=== PATIENT | male | born 1945 | race Caucasian/White ===

== ENCOUNTER → 2017-03-29 | Outpatient (CLI) | payer OTHER ==
[~2017-03-29] MED LIST: ALTACE; ALTACE2.5 MG PO; ASPIR 8181 M1 PO; ASPIRIN81 M2 PO; CIPRO500 MG PO; FISH OIL CONC1 EACH PO; FISH OIL300 MG PO; FLOMAX0.4 MG PO; FLONASE16 G1 BOTH NARES; GLIPIZIDE10 MG PO; GLUCOTROL10 MG PO; IMDUR30 MG PO; LIPITOR40 MG PO; LOPRESSOR25 MG PO; METFORMIN HCL1000 MG PO; METOPROLOL PO; METOPROLOL TART25 MG PO; METOPROLOL TART50 MG PO; NITROSTAT0.4 MG SL; NORCO 5/3251 TABLET PO; OMEPRAZOLE40 M1 PO; PERCOCET 5/31 TABLET PO; RANITIDINE HCL150 MG PO; TAMSULOSIN HCL0.4 MG PO; TRICOR; TRICOR145 MG PO; TUMS500 MG PO; VITAMIN D2000 UNIT PO; VITAMIN D31000 UNI2 PO; ZOFRAN4 MG PO
== END | disposition home or self-care (01) ==
DX: R13.12 Dysphagia, oropharyngeal phase (principal); R13.11 Dysphagia, oral phase; R13.13 Dysphagia, pharyngeal phase
CPT/HCPCS: 92611 GN; G8996 GN; G8997 GN; G8998 GN

== ENCOUNTER → 2017-04-06 | Outpatient (CLI) | payer OTHER ==
[~2017-04-06] VITALS: Ht 171.4 cm; Wt 87.1 kg
[2017-04-06 11:25] LABS: POINT-OF-CARE METER ID UU14107333
[2017-04-06 13:47] LABS: POINT-OF-CARE METER ID UU13113819
== END | disposition home or self-care (01) ==
LOC: AMB 10:30
PROVIDERS: Internal Medicine Gastroenterology
PROC: 0DB48ZX Excision of Esophagogastric Junction, Via Natural or Artificial Opening Endoscopic, Diagnostic (ICD-10-PCS; principal; 2017-04-06)
DX: C16.0 Malignant neoplasm of cardia (principal); K22.70 Barrett's esophagus without dysplasia; R63.4 Abnormal weight loss; E78.5 Hyperlipidemia, unspecified; E11.9 Type 2 diabetes mellitus without complications; G47.33 Obstructive sleep apnea (adult) (pediatric); Z79.82 Long term (current) use of aspirin; Z79.84 Long term (current) use of oral hypoglycemic drugs
CPT/HCPCS: 82948; 88305; 93005; J3010

== ENCOUNTER → 2017-05-04 | Outpatient (CLI) | payer OTHER ==
[~2017-05-04] VITALS: Ht 171.4 cm; Wt 86.6 kg
[2017-05-04 10:20] LABS: POINT-OF-CARE METER ID UU14107333
[2017-05-04 12:38] LABS: POINT-OF-CARE METER ID UU13113819
[2017-05-04 13:22] LABS: POINT-OF-CARE METER ID UU13113819
== END | disposition home or self-care (01) ==
LOC: AMB 09:30
PROVIDERS: Internal Medicine Gastroenterology
DX: C15.5 Malignant neoplasm of lower third of esophagus (principal); K22.70 Barrett's esophagus without dysplasia; K22.2 Esophageal obstruction; K42.9 Umbilical hernia without obstruction or gangrene; K80.20 Calculus of gallbladder without cholecystitis without obstruction; R63.4 Abnormal weight loss; E78.5 Hyperlipidemia, unspecified; I10 Essential (primary) hypertension; K21.9 Gastro-esophageal reflux disease without esophagitis; E11.9 Type 2 diabetes mellitus without complications; G47.33 Obstructive sleep apnea (adult) (pediatric); N13.2 Hydronephrosis with renal and ureteral calculous obstruction
CPT/HCPCS: 82948; 88305; J0330; J3010

== ENCOUNTER 2017-06-07 21:35 | Observation (INO) | payer OTHER ==
[~2017-06-07] VITALS: Ht 170.2 cm; Wt 83.6 kg
[2017-06-07 22:16] LABS: HEMATOCRIT 47.9 % (38.0-50.0); MCH 30.2 PG (29.0-34.0); MCHC 33.2 G/DL (30.0-36.0); MCV 91.1 FL (86-99); MEAN PLAT.VOLUME 10.1 uM^3 (9.0-12.4); PLATELET COUNT 350 K/uL (156-360); RBC DIS.WIDTH-CV 11.7 % (11.8-14.6); RBC DIS.WIDTH-SD 38.9 % (39-53); RED BLOOD COUNT 5.26 M/uL (4.00-5.50); WHITE BLOOD COUNT 10.7 K/uL (4.1-10.2)
[2017-06-07 22:29] LABS: CHLORIDE 105 mEq/L (99-109); GLUCOSE 145 mg/dL (70-99); POTASSIUM 3.8 mEq/L (3.7-5.4); SODIUM 139 mEq/L (136-147)
[2017-06-07 22:31] LABS: ANION GAP 14 MEQ/L (2-14)
[2017-06-07 22:33] LABS: GFR ESTIMATE (CALCULATED) > 59 mL/min/
[2017-06-07 22:34] LABS: UREA NITROGEN (BUN) 19 mg/dL (9-23)
[2017-06-07 22:40] LABS: TROP-I INTERPRETATION NEGATIVE; TROPONIN-I < 0.01 ng/mL (0.0-0.30)
[2017-06-07 22:42] LABS: TOTAL BILIRUBIN 0.5 mg/dL (0.0-1.0)
[2017-06-07 22:43] LABS: ALKALINE PHOSPHATASE 52 IU/L (3-129)
[2017-06-07 22:46] LABS: DIRECT BILIRUBIN 0.2 mg/dL (0.0-0.3)
[2017-06-07 22:47] LABS: LIPASE 122 U/L (1.0-51.0)
[2017-06-08 03:38] VITALS: BP 108/66
[2017-06-08 05:55] LABS: TROP-I INTERPRETATION NEGATIVE; TROPONIN-I 0.02 ng/mL (0.0-0.30)
[2017-06-08 08:28] LABS: POINT-OF-CARE METER ID UU13113831
[2017-06-08 08:39] VITALS: BP 116/68
[2017-06-08] MEDS ORDERED: JARDIANCE10 MG PO (10:20)
[2017-06-08] MEDS ORDERED: OMEPRAZOLE40 M1 PO (10:21)
[2017-06-08] MEDS ORDERED: LOPRESSOR50 MG PO (10:21)
[2017-06-08] MEDS ORDERED: SERTRALINE HCL50 MG PO (10:22)
[2017-06-08 10:41] LABS: TROP-I INTERPRETATION NEGATIVE; TROPONIN-I < 0.01 ng/mL (0.0-0.30)
[2017-06-08 12:06] VITALS: BP 122/69
== END 2017-06-08 12:13 | disposition home or self-care (01) ==
LOC: EME 21:35 → EDOF 06-08 02:34 → ENRESERV 06-08 02:42 → 5WEST 06-08 03:34
PROVIDERS: Hospitalist
DX: R10.13 Epigastric pain (principal); C15.9 Malignant neoplasm of esophagus, unspecified; I25.10 Atherosclerotic heart disease of native coronary artery without angina pectoris; Z95.1 Presence of aortocoronary bypass graft; I25.2 Old myocardial infarction; E11.9 Type 2 diabetes mellitus without complications; I10 Essential (primary) hypertension; E78.5 Hyperlipidemia, unspecified; Z87.442 Personal history of urinary calculi; K22.70 Barrett's esophagus without dysplasia; K44.9 Diaphragmatic hernia without obstruction or gangrene; F32.9 Major depressive disorder, single episode, unspecified; Z79.84 Long term (current) use of oral hypoglycemic drugs; Z91.012 Allergy to eggs
CPT/HCPCS: 71020; 74177; 80048; 80076; 82948; 83690; 84484; 85027; 93005; 99281; 99285; C9113; G0378; J2405; J3010; J7030

== ENCOUNTER 2017-07-03 09:52 | Inpatient (IN) | payer OTHER ==
[~2017-07-03] VITALS: Ht 170.2 cm; Wt 73.5 kg
[~2017-07-03 09:52] MED LIST changes: +BENADRYL25 MG PO; +COMPAZINE10 MG PO; +DEXAMETHASONE4 MG PO; +JARDIANCE10 MG PO; +LOPRESSOR50 MG PO; +OXYCODONE-ACET500 ML PO; +SERTRALINE HCL50 MG PO; +VITAMIN D32000 UNI1 PO; +ZANTAC150 MG PO
[2017-07-03 10:35] LABS: EOSINOPHIL (%) 1.4 % (0-5); EOSINOPHIL COUNT 0.1 K/uL (0-0.3); HEMATOCRIT 45.5 % (38.0-50.0); IMMATURE GRANULOCYTE (%) 0.8 % (0.0-0.7); INSTRUMENT ABS NEUTROPHIL CT 2.9 K/uL; INTER. NORMALIZED RATIO 1.3; LYMPHOCYTE COUNT 0.2 K/uL (1.0-2.8); MCH 30.4 PG (29.0-34.0); MCHC 33.4 G/DL (30.0-36.0); MONOCYTE (%) 12.2 % (3-12); MONOCYTE COUNT 0.5 K/uL (0-0.8); NEUTROPHIL (%) 79.1 % (45-76); NEUTROPHIL COUNT 2.9 K/uL (1.8-6.4); PROTHROMBIN TIME 14.4 SEC (10.2-12.9); RBC DIS.WIDTH-SD 39.5 % (39-53); WHITE BLOOD COUNT 3.7 K/uL (4.1-10.2)
[2017-07-03 10:37] LABS: PTT 27.9 SEC (25-37)
[2017-07-03 10:40] LABS: CHLORIDE 106 mEq/L (99-109); POTASSIUM 3.9 mEq/L (3.7-5.4); SODIUM 139 mEq/L (136-147)
[2017-07-03 10:43] LABS: GLUCOSE 184 mg/dL (70-99)
[2017-07-03 10:44] LABS: ANION GAP 14 MEQ/L (2-14)
[2017-07-03 10:45] LABS: TOTAL BILIRUBIN 0.7 mg/dL (0.0-1.0)
[2017-07-03 10:46] LABS: ALKALINE PHOSPHATASE 46 IU/L (3-129); GFR ESTIMATE (CALCULATED) > 59 mL/min/ (58.99-99999)
[2017-07-03 10:47] LABS: UREA NITROGEN (BUN) 19 mg/dL (9-23)
[2017-07-03 10:49] LABS: TROP-I INTERPRETATION NEGATIVE; TROPONIN-I 0.12 ng/mL (0.0-0.30)
[2017-07-03 11:04] LABS: MEAN PLAT.VOLUME 10.5 uM^3 (9.0-12.4); PLAT.SUFFICIENCY DECREASED
[2017-07-03 11:07] LABS: PLATELET COUNT 99 K/uL (156-360)
[2017-07-03] MEDS ORDERED: HYDROCODONE-AC118 ML PO (13:44)
[2017-07-03] MEDS ORDERED: IMODIUM A-D2 M2 PO (13:46)
[2017-07-03] MEDS ORDERED: MYCOSTATIN 100,60 ML PO (13:47)
[2017-07-03 16:28] LABS: BASE EXCESS -2.7 mEq/L (-3 to +3); BICARBONATE 20.8 mEq/L (22-26); CARBOXY HGB 2.1 % (0-5); METHEMOGLOBIN 1.5 % (0-1.5); PCO2 32 mm Hg (35-45); PO2 69 mm Hg (80-100); pH 7.42 (7.35-7.45)
[2017-07-03 16:29] LABS: COMMENTS - BLOOD GASES A+C+; DEVICE NC; O2 FLOW 2 L/MIN; SITE RR
[2017-07-03 16:56] VITALS: BP 134/80
[2017-07-03 17:02] LABS: POINT-OF-CARE METER ID UU14149397
[2017-07-03 19:24] LABS: TROP-I INTERPRETATION NEGATIVE; TROPONIN-I 0.11 ng/mL (0.0-0.30)
[2017-07-03 20:32] VITALS: BP 118/74
[2017-07-03 21:15] LABS: POINT-OF-CARE METER ID UU14117124
[2017-07-04] VITALS (7 sets, daily range): BP systolic 102–131; BP diastolic 61–76
[2017-07-04 02:02] LABS: HEMATOCRIT 39.5 % (38.0-50.0); MCH 30.7 PG (29.0-34.0); MCHC 33.7 G/DL (30.0-36.0); MCV 91.2 FL (86-99); MEAN PLAT.VOLUME 10.2 uM^3 (9.0-12.4); PLATELET COUNT 90 K/uL (156-360); RBC DIS.WIDTH-SD 39.9 % (39-53); RED BLOOD COUNT 4.33 M/uL (4.00-5.50); WHITE BLOOD COUNT 2.3 K/uL (4.1-10.2)
[2017-07-04 02:11] LABS: CHLORIDE 111 mEq/L (99-109); POTASSIUM 4.2 mEq/L (3.7-5.4); SODIUM 141 mEq/L (136-147)
[2017-07-04 02:14] LABS: ANION GAP 7 MEQ/L (2-14)
[2017-07-04 02:16] LABS: GFR ESTIMATE (CALCULATED) > 59 mL/min/ (58.99-99999)
[2017-07-04 02:27] LABS: UREA NITROGEN (BUN) 16 mg/dL (9-23)
[2017-07-04 02:30] LABS: GLUCOSE 100 mg/dL (70-99)
[2017-07-04 06:17] LABS: POINT-OF-CARE METER ID UU14149397
[2017-07-04 11:40] LABS: POINT-OF-CARE METER ID UU14117124
[2017-07-04 16:42] LABS: POINT-OF-CARE METER ID UU14117124
[2017-07-04 21:26] LABS: TROP-I INTERPRETATION NEGATIVE; TROPONIN-I 0.02 ng/mL (0.0-0.30)
[2017-07-04 21:51] LABS: POINT-OF-CARE METER ID UU14117124
[2017-07-05 03:39] LABS: HEMATOCRIT 35.2 % (38.0-50.0); MCHC 33.8 G/DL (30.0-36.0); MCV 91.7 FL (86-99); MEAN PLAT.VOLUME 10.5 uM^3 (9.0-12.4); PLATELET COUNT 86 K/uL (156-360); RBC DIS.WIDTH-CV 11.9 % (11.8-14.6); RBC DIS.WIDTH-SD 39.7 % (39-53); RED BLOOD COUNT 3.84 M/uL (4.00-5.50); WHITE BLOOD COUNT 2.5 K/uL (4.1-10.2)
[2017-07-05 03:57] VITALS: BP 128/79
[2017-07-05 06:55] LABS: POINT-OF-CARE METER ID UU14208753
[2017-07-05 07:12] VITALS: BP 121/67
[2017-07-05 10:37] VITALS: BP 114/68
[2017-07-05 11:13] LABS: POINT-OF-CARE METER ID UU14117124
[2017-07-05] MEDS ORDERED: LOVENOX80 MG/0.8 SC (11:49)
[2017-07-05 15:29] VITALS: BP 137/68
[2017-07-05 16:10] LABS: POINT-OF-CARE METER ID UU14117124
[2017-07-06 22:45] LABS: Heparin Induced Plt Ab Negative (Negative)
[2017-07-07 16:42] LABS: UFH SRA Result Negative (Negative)
== END 2017-07-05 18:14 | disposition home or self-care (01) | DRG 176 ==
LOC: EME → EDBD 09:52 → EME 09:52 → 3EAST 13:51 → EDOF 13:51 → ENRESERV 13:57 → EDOF 14:09 → ENRESERV 14:31 → 3EAST 16:11
PROVIDERS: Emergency Medicine; Hospitalist; Internal Medicine Hematology & Oncology
DX: I26.92 Saddle embolus of pulmonary artery without acute cor pulmonale (principal); K21.9 Gastro-esophageal reflux disease without esophagitis; C15.9 Malignant neoplasm of esophagus, unspecified; K22.70 Barrett's esophagus without dysplasia; R00.0 Tachycardia, unspecified; I25.10 Atherosclerotic heart disease of native coronary artery without angina pectoris; I82.403 Acute embolism and thrombosis of unspecified deep veins of lower extremity, bilateral; R13.10 Dysphagia, unspecified; E11.9 Type 2 diabetes mellitus without complications; I10 Essential (primary) hypertension; E78.5 Hyperlipidemia, unspecified; F32.9 Major depressive disorder, single episode, unspecified; Z92.3 Personal history of irradiation; Z79.82 Long term (current) use of aspirin; Z79.84 Long term (current) use of oral hypoglycemic drugs; I25.2 Old myocardial infarction; Z87.442 Personal history of urinary calculi; Z95.1 Presence of aortocoronary bypass graft; Z95.5 Presence of coronary angioplasty implant and graft; Z92.21 Personal history of antineoplastic chemotherapy; Z87.891 Personal history of nicotine dependence; D72.819 Decreased white blood cell count, unspecified; D69.59 Other secondary thrombocytopenia; R07.9 Chest pain, unspecified; Z79.899 Other long term (current) drug therapy
CPT/HCPCS: 36415; 36600; 71010; 71275; 77336; 80048; 80053; 82803; 82948; 84484; 85025; 85027; 85610; 85730; 86022 90; 93005; 93306; 93970; 94799; 99281; 99285; J1650; J1815; J2405; J7030; Q0164; S0028

== ENCOUNTER 2017-07-17 14:45 | Emergency (ER) | payer OTHER ==
[~2017-07-17] VITALS: Ht 170.2 cm; Wt 72.4 kg
[~2017-07-17 14:45] MED LIST changes: +HYDROCODONE-AC118 ML PO; +IMODIUM A-D2 M2 PO; +LOVENOX80 MG/0.8 SC; +MYCOSTATIN 100,60 ML PO
[2017-07-17 16:41] LABS: HEMATOCRIT 42.2 % (38.0-50.0); HEMOGLOBIN 14.6 G/DL (12.5-16.6); MCH 30.8 PG (29.0-34.0); MCHC 34.6 G/DL (30.0-36.0); PLATELET COUNT 133 K/uL (156-360); RBC DIS.WIDTH-CV 12.7 % (11.8-14.6); RBC DIS.WIDTH-SD 41.4 % (39-53); RED BLOOD COUNT 4.74 M/uL (4.00-5.50); WHITE BLOOD COUNT 2.5 K/uL (4.1-10.2)
[2017-07-17 16:42] LABS: INTER. NORMALIZED RATIO 1.4
[2017-07-17 16:44] LABS: ALBUMIN 3.8 g/dL (3.2-4.8); CHLORIDE 107 mEq/L (99-109); POTASSIUM 4.2 mEq/L (3.7-5.4); SODIUM 137 mEq/L (136-147)
[2017-07-17 16:46] LABS: GLUCOSE 123 mg/dL (70-99); TOTAL PROTEIN 7.1 g/dL (6.4-8.3)
[2017-07-17 16:48] LABS: TOTAL BILIRUBIN 0.6 mg/dL (0.0-1.0)
[2017-07-17 16:50] LABS: ALKALINE PHOSPHATASE 52 IU/L (3-129); CREATININE 0.8 mg/dL (0.6-1.3); GFR ESTIMATE (CALCULATED) > 59 mL/min/ (58.99-99999)
[2017-07-17 16:51] LABS: UREA NITROGEN (BUN) 14 mg/dL (9-23)
[2017-07-17 16:52] LABS: AST (GOT) 37 IU/L (2-34)
[2017-07-17 16:53] LABS: ALT (GPT) 53 IU/L (3-49)
[2017-07-17 16:56] LABS: TROP-I INTERPRETATION NEGATIVE; TROPONIN-I 0.01 ng/mL (0.0-0.30)
[2017-07-17 17:00] LABS: PTT 29.9 SEC (25-37)
[2017-07-17 19:47] LABS: MAGNESIUM 2.1 mg/dL (1.3-2.7)
[2017-07-17 20:56] VITALS: BP 147/67
[2017-07-21] MEDS ORDERED: ELIQUIS2.5 MG PO (10:00)
[2017-07-21] MEDS ORDERED: TRICOR145 MG PO (10:02)
== END 2017-07-17 20:57 | disposition home or self-care (01) ==
LOC: EME 14:45
PROVIDERS: Emergency Medicine
DX: I49.3 Ventricular premature depolarization (principal); I26.99 Other pulmonary embolism without acute cor pulmonale; C15.9 Malignant neoplasm of esophagus, unspecified; R06.00 Dyspnea, unspecified; D72.819 Decreased white blood cell count, unspecified; E11.9 Type 2 diabetes mellitus without complications; Z79.84 Long term (current) use of oral hypoglycemic drugs; E78.5 Hyperlipidemia, unspecified; I10 Essential (primary) hypertension; I25.2 Old myocardial infarction; K21.9 Gastro-esophageal reflux disease without esophagitis; Z95.1 Presence of aortocoronary bypass graft; Z95.5 Presence of coronary angioplasty implant and graft; F32.9 Major depressive disorder, single episode, unspecified; Z79.82 Long term (current) use of aspirin
CPT/HCPCS: 71275; 80053; 83735; 83880; 84484; 85027; 85610; 85730; 93005; 99281; 99285; J2405; J7030

== ENCOUNTER 2017-12-01 10:55 | Emergency (ER) | payer OTHER ==
[~2017-12-01] VITALS: Ht 172.7 cm; Wt 76.6 kg
[~2017-12-01 10:55] MED LIST changes: +ELIQUIS2.5 MG PO
[2017-12-01 11:55] LABS: HEMATOCRIT 36.2 % (38.0-50.0); HEMOGLOBIN 12.5 G/DL (12.5-16.6); MCH 31.5 PG (29.0-34.0); MCHC 34.5 G/DL (30.0-36.0); MCV 91.2 FL (86-99); PLATELET COUNT 217 K/uL (156-360); RBC DIS.WIDTH-CV 12.5 % (11.8-14.6); RBC DIS.WIDTH-SD 41.4 % (39-53); RED BLOOD COUNT 3.97 M/uL (4.00-5.50)
[2017-12-01 12:15] LABS: ALBUMIN 3.4 g/dL (3.2-4.8); CHLORIDE 109 mEq/L (99-109); POTASSIUM 3.7 mEq/L (3.7-5.4); SODIUM 142 mEq/L (136-147)
[2017-12-01 12:17] LABS: GLUCOSE 107 mg/dL (70-99); TOTAL PROTEIN 5.8 g/dL (6.4-8.3)
[2017-12-01 12:19] LABS: TOTAL BILIRUBIN 0.3 mg/dL (0.0-1.0)
[2017-12-01 12:21] LABS: ALKALINE PHOSPHATASE 76 IU/L (3-129); CREATININE 0.7 mg/dL (0.6-1.3); GFR ESTIMATE (CALCULATED) > 59 mL/min/ (58.99-99999)
[2017-12-01 12:22] LABS: UREA NITROGEN (BUN) 12 mg/dL (9-23)
[2017-12-01 12:23] LABS: AST (GOT) 21 IU/L (2-34)
[2017-12-01 12:24] LABS: ALT (GPT) 21 IU/L (3-49); TROP-I INTERPRETATION NEGATIVE; TROPONIN-I < 0.01 ng/mL (0.0-0.30)
[2017-12-01 13:46] VITALS: BP 110/66
== END 2017-12-01 13:45 | disposition home or self-care (01) ==
LOC: EME 10:55
PROVIDERS: Family Medicine
DX: R10.84 Generalized abdominal pain (principal); R91.8 Other nonspecific abnormal finding of lung field; K21.9 Gastro-esophageal reflux disease without esophagitis; Z85.01 Personal history of malignant neoplasm of esophagus; Z90.49 Acquired absence of other specified parts of digestive tract; I25.2 Old myocardial infarction; Z95.1 Presence of aortocoronary bypass graft; F32.9 Major depressive disorder, single episode, unspecified; E11.9 Type 2 diabetes mellitus without complications; E78.5 Hyperlipidemia, unspecified; I10 Essential (primary) hypertension; Z87.442 Personal history of urinary calculi; Z95.5 Presence of coronary angioplasty implant and graft
CPT/HCPCS: 74022; 80053; 84484; 85027; 93005; 99281; 99285

== ENCOUNTER 2018-01-22 20:22 | Emergency (ER) | payer OTHER ==
[~2018-01-22] VITALS: Ht 170.2 cm; Wt 77.9 kg
[2018-01-22 21:22] LABS: APPEARANCE CLOUDY ((CLEAR)); BILIRUBIN NEGATIVE; BLOOD LARGE; GLUCOSE (STRIP) NEGATIVE; KETONES NEGATIVE; LEUKOCYTES NEGATIVE; NITRITE NEGATIVE; PROTEIN (STRIP) 100; SPECIFIC GRAVITY 1.028 (1.000-1.030)
[2018-01-22 21:25] LABS: COLOR AMBER ((YELLOW))
[2018-01-22 21:34] LABS: HEMATOCRIT 35.2 % (38.0-50.0); HEMOGLOBIN 11.7 G/DL (12.5-16.6); MCH 30.9 PG (29.0-34.0); MCHC 33.2 G/DL (30.0-36.0); MCV 92.9 FL (86-99); PLATELET COUNT 211 K/uL (156-360); RBC DIS.WIDTH-CV 12.3 % (11.8-14.6); RBC DIS.WIDTH-SD 41.9 % (39-53); RED BLOOD COUNT 3.79 M/uL (4.00-5.50); WHITE BLOOD COUNT 7.5 K/uL (4.1-10.2)
[2018-01-22 21:37] LABS: RED BLOOD CELLS TNTC /HPF (0-5); UCUL ADDED? YES
[2018-01-22 21:42] LABS: ALBUMIN 3.9 g/dL (3.2-4.8)
[2018-01-22 21:43] LABS: CHLORIDE 109 mEq/L (99-109); POTASSIUM 3.6 mEq/L (3.7-5.4); SODIUM 144 mEq/L (136-147)
[2018-01-22 21:45] LABS: GLUCOSE 138 mg/dL (70-99); TOTAL PROTEIN 6.9 g/dL (6.4-8.3)
[2018-01-22 21:47] LABS: TOTAL BILIRUBIN 0.3 mg/dL (0.0-1.0)
[2018-01-22 21:48] LABS: ALKALINE PHOSPHATASE 77 IU/L (3-129)
[2018-01-22 21:49] LABS: GFR ESTIMATE (CALCULATED) > 59 mL/min/ (58.99-99999)
[2018-01-22 21:50] LABS: AST (GOT) 20 IU/L (2-34); UREA NITROGEN (BUN) 13 mg/dL (9-23)
[2018-01-22 21:51] LABS: ALT (GPT) 19 IU/L (3-49)
[2018-01-22] MEDS ORDERED: CIPRO500 MG PO (22:22)
[2018-01-22 22:53] VITALS: BP 167/78
== END 2018-01-22 22:57 | disposition home or self-care (01) ==
LOC: EME 20:22
PROVIDERS: Physician Assistant
DX: R31.9 Hematuria, unspecified (principal); N20.0 Calculus of kidney; J90 Pleural effusion, not elsewhere classified; N40.0 Benign prostatic hyperplasia without lower urinary tract symptoms; E11.9 Type 2 diabetes mellitus without complications; I10 Essential (primary) hypertension; K21.9 Gastro-esophageal reflux disease without esophagitis; E78.5 Hyperlipidemia, unspecified; F32.9 Major depressive disorder, single episode, unspecified; I25.2 Old myocardial infarction; Z79.82 Long term (current) use of aspirin; Z79.01 Long term (current) use of anticoagulants; Z95.1 Presence of aortocoronary bypass graft; Z95.9 Presence of cardiac and vascular implant and graft, unspecified; Z87.442 Personal history of urinary calculi; Z86.718 Personal history of other venous thrombosis and embolism; Z85.01 Personal history of malignant neoplasm of esophagus; Z92.21 Personal history of antineoplastic chemotherapy; Z92.3 Personal history of irradiation; Z91.012 Allergy to eggs
CPT/HCPCS: 74176; 80053; 81003; 85027; 87086; 99281; 99284